=== PATIENT | male | born 1955 | race Asian ===

== ENCOUNTER 2017-03-14 15:57 | Emergency (ER) | payer OTHER ==
[~2017-03-14] VITALS: Ht 175.3 cm; Wt 90.9 kg
[2017-03-14] MEDS ORDERED: ASPI81 PO (16:15)
[2017-03-14] MEDS ORDERED: METF500T4 PO (16:15)
[2017-03-14] MEDS ORDERED: LISI-660 PO (16:15)
[2017-03-14 16:16] LABS: GLUCOSE,POINT OF CARE 444 MG/DL (70-110)
[2017-03-14] MEDS ORDERED: BUPIVACAINE HCL 0.5% 50 ML VIAL SQ ONE (17:15)
[2017-03-14] MEDS ORDERED: POVIDONE-IODINE 10% 15 ML SOLUTION UD ONE (17:31)
[2017-03-14] MEDS ORDERED: SULFAMETHOX/TRIMETH DS 800-160 MG/TABLET PO ONE (17:45)
[2017-03-14] MEDS ORDERED: CefTRIAXone SODIUM 1 GM/VIAL IM ONE (17:45)
[2017-03-14] MEDS ORDERED: LIDOCAINE HCL/PF 1% 2 ML VIAL IM ONE (17:45)
[2017-03-14 17:57] VITALS: BP 139/86
[2017-03-15] MEDS ORDERED: HYDR-309 PO (14:35)
[2017-03-15] MEDS ORDERED: SULF1TAB42 PO (14:35)
== END 2017-03-14 18:01 | disposition home or self-care (01) ==
LOC: EMS 15:58
DX: L02.31 Cutaneous abscess of buttock (principal); E11.9 Type 2 diabetes mellitus without complications; I10 Essential (primary) hypertension; E78.00 Pure hypercholesterolemia, unspecified; Z79.82 Long term (current) use of aspirin
CPT/HCPCS: 10060; 82962; 96372; 99284; J0696; J3490 ×2

== ENCOUNTER 2017-03-15 14:08 | Emergency (ER) | payer OTHER ==
[~2017-03-15] VITALS: Ht 175.3 cm; Wt 89.0 kg
[~2017-03-15 14:08] MED LIST: ASPI81 PO; LISI-660 PO; METF500T4 PO
[2017-03-15] MEDS ORDERED: SULF1TAB42 PO (14:35)
[2017-03-15] MEDS ORDERED: HYDR-309 PO (14:35)
[2017-03-15 14:37] LABS: GLUCOSE,POINT OF CARE > 600 MG/DL (70-110)
[2017-03-15] MEDS ORDERED: SODIUM CHLORIDE 0.9% 1,000 ML IV ONE (15:30)
[2017-03-15] MEDS ORDERED: INSULIN REGULAR, HUMAN 100 UNITS/ML IVP ONE (15:30)
[2017-03-15 16:15] LABS: CALCIUM, TOTAL 8.6 mg/dL (8.8-10.5); CREATININE 1.26 mg/dL (0.60-1.30); POTASSIUM 4.3 mmol/L (3.5-5.1)
[2017-03-15 17:08] VITALS: BP 131/76
[2017-03-15 17:17] LABS: GLUCOSE,POINT OF CARE 165 MG/DL (70-110)
[2017-03-15] MEDS ORDERED: IBUPROFEN 600 MG TABLET PO ONE (17:30)
== END 2017-03-15 17:37 | disposition home or self-care (01) ==
LOC: EMS 14:10
DX: E11.65 Type 2 diabetes mellitus with hyperglycemia (principal); I10 Essential (primary) hypertension; E78.00 Pure hypercholesterolemia, unspecified; Z48.00 Encounter for change or removal of nonsurgical wound dressing; Z88.6 Allergy status to analgesic agent; Z88.8 Allergy status to other drugs, medicaments and biological substances
CPT/HCPCS: 36415; 80048; 82948; 82962; 96361; 96374; 99285; J1815; J7030

== ENCOUNTER 2017-08-21 12:24 | Emergency (ER) | payer OTHER ==
[~2017-08-21] VITALS: Ht 175.3 cm; Wt 90.9 kg
[~2017-08-21 12:24] MED LIST changes: +HYDR-309 PO; +SULF1TAB42 PO
[2017-08-21 12:58] LABS: GLUCOSE COMMENT 2 Doctor Notified; GLUCOSE,POINT OF CARE 570 MG/DL (70-110)
[2017-08-21] MEDS ORDERED: INSULIN REGULAR, HUMAN 100 UNITS/ML IVP ONE ×2 (14:45→15:00)
[2017-08-21] MEDS ORDERED: SODIUM CHLORIDE 0.9% 1,000 ML IV ONE (14:45)
[2017-08-21 14:57] LABS: GLUCOSE,POINT OF CARE 388 MG/DL (70-110)
[2017-08-21] MEDS ORDERED: HYDROCODONE/ACETAMINOPHEN 5-325 MG TABLET PO ONE (15:15)
[2017-08-21] MEDS ORDERED: LIDOCAINE HCL 1%/EPI 1:200,000/PF 10 ML VIAL INJ ONE (15:15)
[2017-08-21] MEDS ORDERED: CEPHALEXIN MONOHYDRATE 500 MG CAPSULE PO ONE (15:15)
[2017-08-21] MEDS ORDERED: SULFAMETHOX/TRIMETH DS 800-160 MG/TABLET PO ONE (15:15)
[2017-08-21 15:37] LABS: GLUCOSE,POINT OF CARE 260 MG/DL (70-110)
[2017-08-21] MEDS ORDERED: LISINOPRIL 10 MG TABLET PO ONE (16:15)
[2017-08-21 17:30] VITALS: BP 156/87
[2017-08-21 18:03] LABS: GLUCOSE,POINT OF CARE 276 MG/DL (70-110)
== END 2017-08-21 18:00 | disposition home or self-care (01) ==
LOC: EMS 12:28
DX: L02.31 Cutaneous abscess of buttock (principal); E11.65 Type 2 diabetes mellitus with hyperglycemia; I10 Essential (primary) hypertension; E78.00 Pure hypercholesterolemia, unspecified
CPT/HCPCS: 10060; 82962; 96361; 96374; 99284; J1815; J3490; J7030

== ENCOUNTER 2017-08-25 11:43 | Emergency (ER) | payer OTHER ==
[~2017-08-25] VITALS: Ht 175.3 cm; Wt 90.9 kg
[~2017-08-25 11:43] MED LIST changes: -HYDR-309 PO; -SULF1TAB42 PO
[2017-08-25 15:07] VITALS: BP 152/82
== END 2017-08-25 15:10 | disposition home or self-care (01) ==
LOC: EMS 11:43
DX: Z48.00 Encounter for change or removal of nonsurgical wound dressing (principal); E11.9 Type 2 diabetes mellitus without complications; E78.00 Pure hypercholesterolemia, unspecified; I10 Essential (primary) hypertension
CPT/HCPCS: 99282

== ENCOUNTER 2017-11-21 14:26 | Emergency (ER) | payer OTHER ==
[~2017-11-21] VITALS: Ht 175.3 cm; Wt 79.5 kg
[2017-11-21 14:43] VITALS: BP 184/100
[2017-11-21 14:53] LABS: GLUCOSE,POINT OF CARE 475 MG/DL (70-110)
== END 2017-11-21 16:00 | disposition left against medical advice (07) ==
LOC: EMS 14:26
DX: M79.603 Pain in arm, unspecified (principal); Z53.21 Procedure and treatment not carried out due to patient leaving prior to being seen by health care provider; Z79.899 Other long term (current) drug therapy
CPT/HCPCS: 82962

== ENCOUNTER 2019-06-28 16:02 | Emergency (ER) | payer OTHER ==
[~2019-06-28] VITALS: Ht 175.3 cm; Wt 81.8 kg
[~2019-06-28 16:02] MED LIST changes: +METF-960 PO; -METF500T4 PO
[2019-06-28 16:06] VITALS: BP_DIAS 52
[2019-06-28] MEDS ORDERED: [UNRECOGNIZED DRUG - REMARK] PO (16:17)
[2019-06-28] MEDS ORDERED: METF-960 PO (16:17)
[2019-06-28] MEDS ORDERED: EMPA10TA PO (16:17)
[2019-06-28] MEDS ORDERED: SITA25 PO (16:17)
[2019-06-28] MEDS ORDERED: GLIP5 PO (16:17)
[2019-06-28] MEDS ORDERED: UNKNOWN HTN MED PO (16:17)
[2019-06-28 16:20] LABS: GLUCOSE,POINT OF CARE 198 MG/DL (70-110)
[2019-06-28 19:10] VITALS: BP_SYST 118
== END 2019-06-28 19:37 | disposition home or self-care (01) ==
LOC: EMS 16:03
DX: Z11.1 Encounter for screening for respiratory tuberculosis (principal); E11.9 Type 2 diabetes mellitus without complications; I10 Essential (primary) hypertension; L40.9 Psoriasis, unspecified; Z79.899 Other long term (current) drug therapy

== ENCOUNTER 2021-10-16 04:47 | Inpatient (IN) | payer MEDICARE, OTHER ==
[~2021-10-16] VITALS: Ht 167.6 cm; Wt 57.6 kg
[~2021-10-16 04:47] MED LIST changes: -ASPI81 PO; +EMPA10TA PO; +GLIP5 PO; -LISI-660 PO; +LISI-892 PO; +METF-1211 PO; -METF-960 PO; +SITA25 PO; +UNKNOWN HTN MED PO; +[UNRECOGNIZED DRUG - REMARK] PO
[2021-10-16] MEDS ORDERED: IPRATROPIUM BROMIDE 0.5 MG/2.5 ML NEB SOLUTION NEB ONE (05:00)
[2021-10-16] MEDS ORDERED: ALBUTEROL SULFATE 2.5 MG/0.5 ML NEB SOLUTION NEB ONE (05:00)
[2021-10-16] MEDS ORDERED: DEXAMETHASONE SOD PHOS 4 MG/ML VIAL IVP ONE (05:00)
[2021-10-16 05:19] LABS: ABG BASE EXCESS -2.3 mmol/L (-2.0-3.0); ABG CARBOXYHEMOGLOBIN 0.8 % (0.0-1.5); ABG METHEMOGLOBIN 0.3 % (0.0-1.5); ABG OXYGEN SATURATION 95.6 % (95.0-98.0); ABG OXYHEMOGLOBIN 94.5 % (94.0-100.0); ABG PCO2 27 mmHg (35-45); ABG PH 7.507 (7.35-7.450); ABG TOTAL HEMOGLOBIN 16.6 G/dL (12.0-18.0); O2 DEVICE,BLOOD GAS NRB (ROOM AIR); PO2, ARTERIAL BG 71.7 mmHg (79.0-87.0); SITE, BLOOD GAS RT BRACHIAL; SOURCE, BLOOD GAS ARTERIAL; TEMPERATURE, FAHRENHEIT, BG 98.6 FAHREN (96.0-98.6)
[2021-10-16] MEDS ORDERED: SODIUM CHLORIDE 0.9% 100 ML ONE (05:57)
[2021-10-16] MEDS ORDERED: IOHEXOL 350 MG/ML 100 ML VIAL ONE (05:57)
[2021-10-16 05:58] LABS: COVID AG,FIA SOURCE NASOPHARYNGEAL
[2021-10-16 06:01] LABS: BASOPHILS % (AUTO) 0.6 % (0.0-2.0); EOSINOPHILS % (AUTO) 0 % (1.0-6.0); HEMATOCRIT 47.4 % (41-53); HEMOGLOBIN 15.8 g/dL (13.5-17.5); LYMPHOCYTES # (AUTO) 0.6 K/uL (1.0-4.8); LYMPHOCYTES % (AUTO) 5.6 % (22.0-44.0); MEAN CORPUSCULAR HEMOGLOBIN 27.7 pg (26.0-34.0); MEAN CORPUSCULAR HGB CONC 33.4 G/dL (31.0-37.0); MEAN CORPUSCULAR VOLUME 83 fL (80-100); MONOCYTES # (AUTO) 0.3 K/uL (0.1-1.0); MONOCYTES % (AUTO) 2.7 % (2.0-9.0); NEUTROPHILS # (AUTO) 9.9 K/uL (1.8-7.7); PLATELET COUNT (AUTO) 172 K/uL (150-450); RED BLOOD CELL COUNT(AUTO) 5.71 MIL/uL (4.50-5.90); RED CELL DISTRIBUTION WIDTH 15.2 % (11.5-14.5)
[2021-10-16 06:17] LABS: NEUTROPHILS % (AUTO) 91.1 % (40.0-70.0)
[2021-10-16 06:24] LABS: ANION GAP 10 mmol/L (8-16); CALCIUM, TOTAL 8.4 mg/dL (8.8-10.5); CARBON DIOXIDE 26 mmol/L (22-29); CHLORIDE 100 mmol/L (98-107); CREATININE 1.27 mg/dL (0.60-1.30); D-DIMER 18.64 mg/L FEU (0.00-0.50); GLOMERULAR FILTR. RATE CALC 57 mL/min (>60); GLUCOSE,RANDOM 244 mg/dL (70-110); POTASSIUM 3.4 mmol/L (3.5-5.1); PROTHROMBIN TIME 11.1 SEC (9.4-11.6); SODIUM SERUM 136 mmol/L (136-145); UREA NITROGEN, BLOOD 17 mg/dL (7-18)
[2021-10-16 06:25] LABS: INFLUENZA TYPE A NEGATIVE FOR TYPE A (NEGATIVE); INFLUENZA TYPE B NEGATIVE FOR TYPE B (NEGATIVE)
[2021-10-16 06:26] LABS: B-TYPE NATRIURETIC PEPTIDE 1500 pg/mL (0-100)
[2021-10-16] MEDS ORDERED: FUROSEMIDE 40 MG/4 ML VIAL IVP ONE (06:30)
[2021-10-16] MEDS ORDERED: HydrALAZINE HCL 20 MG/ML VIAL IVP ONE (06:30)
[2021-10-16 06:42] LABS: ALANINE AMINOTRANSFERASE 17 U/L (12-78); ALBUMIN 2.5 g/dL (3.4-5.0); ALKALINE PHOSPHATASE 69 U/L (46-116); ASPARTATE AMINOTRANSFERASE 34 U/L (15-37); C-REACTIVE PROTEIN QUANT 3.82 mg/dL (0.00-0.30); CREATINE KINASE, TOTAL ONLY 65 U/L (39-308); FERRITIN 637 ng/mL (26-388); PHOSPHORUS 2.8 mg/dL (2.5-4.9)
[2021-10-16 06:54] LABS: LACTIC ACID 2.5 mmol/L (0.4-2.0)
[2021-10-16] MEDS ORDERED: HEPARIN SODIUM 25000 UNITS/D5W 250 ML IV PRN (07:15)
[2021-10-16] MEDS ORDERED: HEPARIN SODIUM,PORCINE 5,000 UNITS/ML VIAL IVP PRN ×3 (07:15→21:15)
[2021-10-16] MEDS ORDERED: HEPARIN SODIUM,PORCINE 5,000 UNITS/ML VIAL IVP ONE ×2 (07:15→21:15)
[2021-10-16] MEDS ORDERED: ACETAMINOPHEN 325 MG TABLET PO PRN ×2 (07:30→10:00)
[2021-10-16] MEDS ORDERED: ONDANSETRON HCL 4 MG/2 ML VIAL IVP PRN ×2 (07:30→10:00)
[2021-10-16 07:55] LABS: INR 1.1 (0.9-1.1); PROTHROMBIN TIME 11.4 SEC (9.4-11.6)
[2021-10-16] MEDS ORDERED: DEXTROSE 50%-WATER 25 GM/50 ML SYRINGE IVP PRN (10:00)
[2021-10-16] MEDS ORDERED: POTASSIUM CHL 10 MEQ/WATER 50 ML IV PRN (10:00)
[2021-10-16] MEDS ORDERED: REMDESIVIR 200 MG in SODIUM CHLORIDE 0.9% 250 ML IV ONE (10:00)
[2021-10-16 10:56] LABS: APPEARANCE,URINE CLEAR (CLEAR); BILIRUBIN,URINE NEGATIVE (NEGATIVE); GLUCOSE, URINE (UA) 100 mg/dL (NEGATIVE); KETONES,URINE NEGATIVE (NEGATIVE); LEUKOCYTE ESTERASE ,URINE NEGATIVE (NEGATIVE); NITRATE,URINE NEGATIVE (NEGATIVE); OCCULT BLOOD,URINE NEGATIVE (NEGATIVE); PH,URINE 5.5 (5.0-8.0); PROTEIN,URINE NEGATIVE (NEGATIVE); UROBILINOGEN,URINE 0.2 mg/dL (<=1.0)
[2021-10-16] MEDS: INSULIN GLARGINE,HUM.REC.ANLOG 100 UNITS/ML SQ SCH (10:56)
[2021-10-16] MEDS: INSULIN LISPRO 100 UNITS/ML SQ PRN ×4 (10:59→16:10)
[2021-10-16 11:00] LABS: AMPHET/METH SCREEN,URINE NEGATIVE (NEGATIVE); BARBITURATE SCREEN, URINE NEGATIVE (NEGATIVE); BENZODIAZEPINES SCREEN,URINE NEGATIVE (NEGATIVE); CANNABINOID SCREEN,URINE NEGATIVE (NEGATIVE); COCAINE SCREEN,URINE NEGATIVE (NEGATIVE); METHADONE SCREEN, URINE NEGATIVE (NEGATIVE); OPIATE SCREEN,URINE POSITIVE (NEGATIVE)
[2021-10-16 11:02] LABS: PHENCYCLIDINE SCREEN,URINE NEGATIVE (NEGATIVE)
[2021-10-16 11:11] LABS: GLUCOMETER DEV NAME(LOC) ERT.5; GLUCOSE,POINT OF CARE 299 MG/DL (70-110)
[2021-10-16 12:02] LABS: BACTERIA,URINE None Seen /HPF (None Seen); RBC,URINE None Seen /HPF (0-2); WBC,URINE None Seen /HPF (0-5)
[2021-10-16 12:36] LABS: GLUCOMETER DEV NAME(LOC) ERT.5; GLUCOSE,POINT OF CARE 286 MG/DL (70-110)
[2021-10-16 14:07] LABS: GLUCOMETER DEV NAME(LOC) ERT.5; GLUCOSE,POINT OF CARE 269 MG/DL (70-110)
[2021-10-16 16:16] LABS: GLUCOMETER DEV NAME(LOC) ERT.5; GLUCOSE,POINT OF CARE 172 MG/DL (70-110)
[2021-10-16 21:47] VITALS: BP 131/75
[2021-10-16 21:57] LABS: INR 1.1 (0.9-1.1); PROTHROMBIN TIME 11.9 SEC (9.4-11.6)
[2021-10-16] MEDS: DOCUSATE SODIUM 100 MG CAPSULE PO SCH (22:03)
[2021-10-16] MEDS: FAMOTIDINE 20 MG TABLET PO SCH (22:03)
[2021-10-16 22:28] LABS: BASOPHILS % (AUTO) 0.2 % (0.0-2.0); EOSINOPHILS % (AUTO) 0 % (1.0-6.0); HEMATOCRIT 51.8 % (41-53); HEMOGLOBIN 17.4 g/dL (13.5-17.5); LYMPHOCYTES # (AUTO) 0.6 K/uL (1.0-4.8); LYMPHOCYTES % (AUTO) 5.1 % (22.0-44.0); MEAN CORPUSCULAR HEMOGLOBIN 27.5 pg (26.0-34.0); MEAN CORPUSCULAR HGB CONC 33.7 G/dL (31.0-37.0); MEAN CORPUSCULAR VOLUME 82 fL (80-100); MONOCYTES # (AUTO) 0.4 K/uL (0.1-1.0); MONOCYTES % (AUTO) 3.2 % (2.0-9.0); NEUTROPHILS # (AUTO) 11.5 K/uL (1.8-7.7); PLATELET COUNT (AUTO) 200 K/uL (150-450); RED BLOOD CELL COUNT(AUTO) 6.34 MIL/uL (4.50-5.90); RED CELL DISTRIBUTION WIDTH 15.3 % (11.5-14.5)
[2021-10-16] MEDS: POTASSIUM CHLORIDE 20 MEQ ER TABLET PO PRN (22:30)
[2021-10-16] MEDS: HEPARIN SODIUM,PORCINE 5,000 UNITS/ML VIAL IVP PRN (22:36)
[2021-10-16 22:41] LABS: NEUTROPHILS % (AUTO) 91.5 % (40.0-70.0)
[2021-10-17 00:01] LABS: GLUCOMETER DEV NAME(LOC) 5N.1C; GLUCOSE,POINT OF CARE 100 MG/DL (70-110)
[2021-10-17] MEDS: HEPARIN SODIUM 25000 UNITS/D5W 250 ML IV PRN (00:46)
[2021-10-17 01:05] VITALS: BP 119/88
[2021-10-17 04:55] LABS: BASOPHILS % (AUTO) 0.2 % (0.0-2.0); EOSINOPHILS % (AUTO) 0 % (1.0-6.0); HEMATOCRIT 51.3 % (41-53); HEMOGLOBIN 17.1 g/dL (13.5-17.5); LYMPHOCYTES # (AUTO) 0.9 K/uL (1.0-4.8); LYMPHOCYTES % (AUTO) 4.9 % (22.0-44.0); MEAN CORPUSCULAR HEMOGLOBIN 27.1 pg (26.0-34.0); MEAN CORPUSCULAR HGB CONC 33.3 G/dL (31.0-37.0); MEAN CORPUSCULAR VOLUME 81 fL (80-100); MONOCYTES # (AUTO) 0.5 K/uL (0.1-1.0); MONOCYTES % (AUTO) 2.7 % (2.0-9.0); PLATELET COUNT (AUTO) 238 K/uL (150-450); RED CELL DISTRIBUTION WIDTH 15.2 % (11.5-14.5)
[2021-10-17 04:56] LABS: NEUTROPHILS % (AUTO) 92.2 % (40.0-70.0)
[2021-10-17 05:05] VITALS: BP 114/85
[2021-10-17 06:41] LABS: GLUCOMETER DEV NAME(LOC) 5S.2B; GLUCOSE,POINT OF CARE 125 MG/DL (70-110)
[2021-10-17 07:26] VITALS: BP 130/80
[2021-10-17] MEDS: DEXAMETHASONE SOD PHOS 4 MG/ML VIAL IVP SCH (09:14)
[2021-10-17] MEDS: INSULIN GLARGINE,HUM.REC.ANLOG 100 UNITS/ML SQ SCH (09:15)
[2021-10-17] MEDS: FUROSEMIDE 40 MG/4 ML VIAL IVP SCH (09:17)
[2021-10-17] MEDS: LISINOPRIL 20 MG TABLET PO SCH (09:18)
[2021-10-17] MEDS: DOCUSATE SODIUM 100 MG CAPSULE PO SCH ×2 (09:18→22:23)
[2021-10-17] MEDS: FAMOTIDINE 20 MG TABLET PO SCH ×2 (09:19→22:23)
[2021-10-17] MEDS ORDERED: SODIUM CHLORIDE 0.9% 500 ML IV ONE (10:04)
[2021-10-17 10:43] VITALS: BP 128/72
[2021-10-17] MEDS: REMDESIVIR 100 MG in SODIUM CHLORIDE 0.9% 250 ML IV SCH (11:36)
[2021-10-17] MEDS: INSULIN LISPRO 100 UNITS/ML SQ PRN ×3 (11:43→22:22)
[2021-10-17 15:28] VITALS: BP 126/68
[2021-10-17 20:16] VITALS: BP 120/68
[2021-10-17 20:31] LABS: GLUCOMETER DEV NAME(LOC) 5S.2B; GLUCOSE,POINT OF CARE 226 MG/DL (70-110)
[2021-10-17 21:21] LABS: GLUCOMETER DEV NAME(LOC) 5N.1C; GLUCOSE,POINT OF CARE 285 MG/DL (70-110)
[2021-10-17 21:21] LABS: GLUCOMETER DEV NAME(LOC) 5N.1C; GLUCOSE,POINT OF CARE 242 MG/DL (70-110)
[2021-10-17] MEDS ORDERED: HEPARIN SODIUM,PORCINE 5,000 UNITS/ML VIAL IVP ONE (22:30)
[2021-10-18 00:27] VITALS: BP 113/71
[2021-10-18] MEDS: HEPARIN SODIUM 25000 UNITS/D5W 250 ML IV PRN (01:40)
[2021-10-18 05:07] VITALS: BP 140/82
[2021-10-18] MEDS: INSULIN LISPRO 100 UNITS/ML SQ PRN ×3 (06:18→17:17)
[2021-10-18 06:26] LABS: GLUCOMETER DEV NAME(LOC) 5S.2B; GLUCOSE,POINT OF CARE 147 MG/DL (70-110)
[2021-10-18] MEDS: LISINOPRIL 20 MG TABLET PO SCH (08:49)
[2021-10-18] MEDS: DEXAMETHASONE SOD PHOS 4 MG/ML VIAL IVP SCH (08:50)
[2021-10-18] MEDS: DOCUSATE SODIUM 100 MG CAPSULE PO SCH ×2 (08:51→21:01)
[2021-10-18] MEDS: FAMOTIDINE 20 MG TABLET PO SCH ×2 (08:51→21:01)
[2021-10-18] MEDS: FUROSEMIDE 40 MG/4 ML VIAL IVP SCH (08:51)
[2021-10-18] MEDS: INSULIN GLARGINE,HUM.REC.ANLOG 100 UNITS/ML SQ SCH (08:55)
[2021-10-18 09:13] VITALS: BP 130/80
[2021-10-18] MEDS: REMDESIVIR 100 MG in SODIUM CHLORIDE 0.9% 250 ML IV SCH (10:14)
[2021-10-18 12:55] VITALS: BP 111/69
[2021-10-18 14:46] VITALS: BP 125/83
[2021-10-18 18:02] LABS: GLUCOMETER DEV NAME(LOC) 5S.2B; GLUCOSE,POINT OF CARE 253 MG/DL (70-110)
[2021-10-18 18:02] LABS: GLUCOMETER DEV NAME(LOC) 5S.2B; GLUCOSE,POINT OF CARE 163 MG/DL (70-110)
[2021-10-18 20:00] VITALS: BP 110/69
[2021-10-19] VITALS: BP 124/86
[2021-10-19] MEDS: HEPARIN SODIUM 25000 UNITS/D5W 250 ML IV PRN ×2 (02:42→22:50)
[2021-10-19 04:20] VITALS: BP 116/74
[2021-10-19 07:10] VITALS: BP 132/66
[2021-10-19 08:11] LABS: GLUCOMETER DEV NAME(LOC) 5N.1C; GLUCOSE,POINT OF CARE 103 MG/DL (70-110)
[2021-10-19] MEDS: DEXAMETHASONE SOD PHOS 4 MG/ML VIAL IVP SCH (08:46)
[2021-10-19] MEDS: FUROSEMIDE 40 MG/4 ML VIAL IVP SCH (08:50)
[2021-10-19] MEDS: DOCUSATE SODIUM 100 MG CAPSULE PO SCH ×2 (08:52→19:42)
[2021-10-19] MEDS: LISINOPRIL 20 MG TABLET PO SCH (08:52)
[2021-10-19] MEDS: FAMOTIDINE 20 MG TABLET PO SCH ×2 (08:52→19:42)
[2021-10-19] MEDS: INSULIN GLARGINE,HUM.REC.ANLOG 100 UNITS/ML SQ SCH (08:55)
[2021-10-19 09:14] LABS: ALANINE AMINOTRANSFERASE 11 U/L (12-78); ALBUMIN 2.1 g/dL (3.4-5.0); ALKALINE PHOSPHATASE 93 U/L (46-116); ANION GAP 9 mmol/L (8-16); ASPARTATE AMINOTRANSFERASE 25 U/L (15-37); BILIRUBIN,TOTAL 0.9 mg/dL (0.1-1.0); CALCIUM, TOTAL 7.9 mg/dL (8.8-10.5); CARBON DIOXIDE 23 mmol/L (22-29); CHLORIDE 102 mmol/L (98-107); CREATININE 0.97 mg/dL (0.60-1.30); GLOMERULAR FILTR. RATE CALC > 60 mL/min (>60); GLUCOSE,RANDOM 94 mg/dL (70-110); POTASSIUM 3.1 mmol/L (3.5-5.1); SODIUM SERUM 134 mmol/L (136-145); TOTAL PROTEIN, SERUM 6.5 g/dL (6.4-8.2); UREA NITROGEN, BLOOD 29 mg/dL (7-18)
[2021-10-19] MEDS ORDERED: POTASSIUM CHL 10 MEQ/WATER 50 ML IV PRN (09:45)
[2021-10-19] MEDS ORDERED: POTASSIUM CHLORIDE 20 MEQ ER TABLET PO PRN (09:45)
[2021-10-19] MEDS: REMDESIVIR 100 MG in SODIUM CHLORIDE 0.9% 250 ML IV SCH (10:37)
[2021-10-19] MEDS: POTASSIUM CHLORIDE 20 MEQ ER TABLET PO PRN (10:38)
[2021-10-19 11:06] VITALS: BP 123/77
[2021-10-19] MEDS: INSULIN LISPRO 100 UNITS/ML SQ PRN ×3 (11:28→21:51)
[2021-10-19 15:24] VITALS: BP 130/77
[2021-10-19] MEDS: HEPARIN SODIUM,PORCINE 5,000 UNITS/ML VIAL IVP PRN (17:43)
[2021-10-19 20:22] VITALS: BP 124/98
[2021-10-19 20:52] LABS: GLUCOMETER DEV NAME(LOC) 5N.3; GLUCOSE,POINT OF CARE 100 MG/DL (70-110)
[2021-10-19 21:10] LABS: GLUCOMETER DEV NAME(LOC) 5S.1; GLUCOSE,POINT OF CARE 218 MG/DL (70-110)
[2021-10-20] VITALS (7 sets, daily range): BP systolic 112–133; BP diastolic 58–91
[2021-10-20 03:41] LABS: GLUCOMETER DEV NAME(LOC) 5S.2B; GLUCOSE,POINT OF CARE 189 MG/DL (70-110)
[2021-10-20 03:41] LABS: GLUCOMETER DEV NAME(LOC) 5S.2B; GLUCOSE,POINT OF CARE 200 MG/DL (70-110)
[2021-10-20 06:07] LABS: GLUCOMETER DEV NAME(LOC) 5N.1C; GLUCOSE,POINT OF CARE 76 MG/DL (70-110)
[2021-10-20 07:31] LABS: BASOPHILS % (AUTO) 0.1 % (0.0-2.0); EOSINOPHILS % (AUTO) 0.1 % (1.0-6.0); HEMATOCRIT 48.9 % (41-53); HEMOGLOBIN 16.4 g/dL (13.5-17.5); LYMPHOCYTES # (AUTO) 0.6 K/uL (1.0-4.8); LYMPHOCYTES % (AUTO) 5.8 % (22.0-44.0); MEAN CORPUSCULAR HEMOGLOBIN 27.2 pg (26.0-34.0); MEAN CORPUSCULAR HGB CONC 33.5 G/dL (31.0-37.0); MEAN CORPUSCULAR VOLUME 81 fL (80-100); MONOCYTES # (AUTO) 0.3 K/uL (0.1-1.0); MONOCYTES % (AUTO) 3.1 % (2.0-9.0); NEUTROPHILS # (AUTO) 8.9 K/uL (1.8-7.7); PLATELET COUNT (AUTO) 325 K/uL (150-450); RED BLOOD CELL COUNT(AUTO) 6.02 MIL/uL (4.50-5.90); RED CELL DISTRIBUTION WIDTH 15.1 % (11.5-14.5)
[2021-10-20 07:35] LABS: ALANINE AMINOTRANSFERASE 13 U/L (12-78); ALBUMIN 2.2 g/dL (3.4-5.0); ALKALINE PHOSPHATASE 59 U/L (46-116); ANION GAP 9 mmol/L (8-16); ASPARTATE AMINOTRANSFERASE 25 U/L (15-37); BILIRUBIN,TOTAL 0.8 mg/dL (0.1-1.0); CARBON DIOXIDE 26 mmol/L (22-29); CHLORIDE 103 mmol/L (98-107); CREATININE 1.05 mg/dL (0.60-1.30); GLOMERULAR FILTR. RATE CALC > 60 mL/min (>60); GLUCOSE,RANDOM 84 mg/dL (70-110); POTASSIUM 3.4 mmol/L (3.5-5.1); SODIUM SERUM 138 mmol/L (136-145); TOTAL PROTEIN, SERUM 6.7 g/dL (6.4-8.2); UREA NITROGEN, BLOOD 30 mg/dL (7-18)
[2021-10-20 07:40] LABS: NEUTROPHILS % (AUTO) 90.9 % (40.0-70.0)
[2021-10-20] MEDS: DEXAMETHASONE SOD PHOS 4 MG/ML VIAL IVP SCH (08:15)
[2021-10-20] MEDS: FUROSEMIDE 40 MG/4 ML VIAL IVP SCH (08:16)
[2021-10-20] MEDS: DOCUSATE SODIUM 100 MG CAPSULE PO SCH ×2 (08:17→20:12)
[2021-10-20] MEDS: LISINOPRIL 20 MG TABLET PO SCH (08:18)
[2021-10-20] MEDS: FAMOTIDINE 20 MG TABLET PO SCH ×2 (08:18→20:12)
[2021-10-20] MEDS: HEPARIN SODIUM,PORCINE 5,000 UNITS/ML VIAL IVP PRN (08:19)
[2021-10-20] MEDS: POTASSIUM CHLORIDE 20 MEQ ER TABLET PO PRN (08:19)
[2021-10-20] MEDS: INSULIN GLARGINE,HUM.REC.ANLOG 100 UNITS/ML SQ SCH (08:36)
[2021-10-20] MEDS: REMDESIVIR 100 MG in SODIUM CHLORIDE 0.9% 250 ML IV SCH (09:48)
[2021-10-20] MEDS: APIXABAN 5 MG TABLET PO SCH ×2 (11:30→20:12)
[2021-10-20] MEDS: INSULIN LISPRO 100 UNITS/ML SQ PRN ×3 (11:35→20:22)
[2021-10-20 20:16] LABS: GLUCOMETER DEV NAME(LOC) 5S.1; GLUCOSE,POINT OF CARE 152 MG/DL (70-110)
[2021-10-20 22:21] LABS: GLUCOMETER DEV NAME(LOC) 5S.2B; GLUCOSE,POINT OF CARE 123 MG/DL (70-110)
[2021-10-20 22:21] LABS: GLUCOMETER DEV NAME(LOC) 5S.2B; GLUCOSE,POINT OF CARE 177 MG/DL (70-110)
[2021-10-21 04:05] VITALS: BP 132/99
[2021-10-21 07:22] VITALS: BP 134/86
[2021-10-21] MEDS: DOCUSATE SODIUM 100 MG CAPSULE PO SCH ×3 (09:00→20:19)
[2021-10-21] MEDS: LISINOPRIL 20 MG TABLET PO SCH (10:01)
[2021-10-21] MEDS: DEXAMETHASONE SOD PHOS 4 MG/ML VIAL IVP SCH (10:01)
[2021-10-21] MEDS: FAMOTIDINE 20 MG TABLET PO SCH ×2 (10:01→20:19)
[2021-10-21] MEDS: APIXABAN 5 MG TABLET PO SCH ×2 (10:02→20:19)
[2021-10-21] MEDS: FUROSEMIDE 40 MG/4 ML VIAL IVP SCH (10:02)
[2021-10-21] MEDS: INSULIN GLARGINE,HUM.REC.ANLOG 100 UNITS/ML SQ SCH (12:12)
[2021-10-21] MEDS: INSULIN LISPRO 100 UNITS/ML SQ PRN ×2 (12:13→20:21)
[2021-10-21 12:36] VITALS: BP 120/81
[2021-10-21 16:30] VITALS: BP 110/81
[2021-10-21 18:12] LABS: GLUCOMETER DEV NAME(LOC) 5S.1; GLUCOSE,POINT OF CARE 186 MG/DL (70-110)
[2021-10-21 18:12] LABS: GLUCOMETER DEV NAME(LOC) 5S.1; GLUCOSE,POINT OF CARE 292 MG/DL (70-110)
[2021-10-21 19:56] LABS: GLUCOMETER DEV NAME(LOC) 5S.2B; GLUCOSE,POINT OF CARE 98 MG/DL (70-110)
[2021-10-21 20:36] VITALS: BP 112/74
[2021-10-22 00:06] VITALS: BP 118/77
[2021-10-22 00:17] LABS: GLUCOMETER DEV NAME(LOC) 5S.1; GLUCOSE,POINT OF CARE 287 MG/DL (70-110)
[2021-10-22 05:36] VITALS: BP 130/84
[2021-10-22] MEDS: INSULIN LISPRO 100 UNITS/ML SQ PRN (06:07)
[2021-10-22 10:16] LABS: GLUCOMETER DEV NAME(LOC) 5S.1; GLUCOSE,POINT OF CARE 181 MG/DL (70-110)
== END 2021-10-22 06:45 | disposition left against medical advice (07) | DRG 177 ==
LOC: EMS 04:47 → 5N 20:51
PROVIDERS: ADMIT Internal Medicine; ATTEND Internal Medicine
PROC: XW033E5 Introduction of Remdesivir Anti-infective into Peripheral Vein, Percutaneous Approach, New Technology Group 5 (ICD-10-PCS; principal; 2021-10-16)
PROC: 5A0935A Assistance with Respiratory Ventilation, Less than 24 Consecutive Hours, High Flow/Velocity Cannula (ICD-10-PCS; 2021-10-16)
PROC: 5A0935A Assistance with Respiratory Ventilation, Less than 24 Consecutive Hours, High Flow/Velocity Cannula (ICD-10-PCS; 2021-10-17)
PROC: 5A0935A Assistance with Respiratory Ventilation, Less than 24 Consecutive Hours, High Flow/Velocity Cannula (ICD-10-PCS; 2021-10-18)
PROC: 5A0935A Assistance with Respiratory Ventilation, Less than 24 Consecutive Hours, High Flow/Velocity Cannula (ICD-10-PCS; 2021-10-19)
PROC: 5A0935A Assistance with Respiratory Ventilation, Less than 24 Consecutive Hours, High Flow/Velocity Cannula (ICD-10-PCS; 2021-10-20)
PROC: 5A0935A Assistance with Respiratory Ventilation, Less than 24 Consecutive Hours, High Flow/Velocity Cannula (ICD-10-PCS; 2021-10-21)
DX: U07.1 COVID-19 (principal); I26.99 Other pulmonary embolism without acute cor pulmonale; J96.01 Acute respiratory failure with hypoxia; J12.82 Pneumonia due to coronavirus disease 2019; I50.23 Acute on chronic systolic (congestive) heart failure; I82.432 Acute embolism and thrombosis of left popliteal vein; I42.9 Cardiomyopathy, unspecified; D68.59 Other primary thrombophilia; I11.0 Hypertensive heart disease with heart failure; Z20.822 Contact with and (suspected) exposure to COVID-19; F15.90 Other stimulant use, unspecified, uncomplicated; E78.5 Hyperlipidemia, unspecified; F11.10 Opioid abuse, uncomplicated; E78.00 Pure hypercholesterolemia, unspecified; Z53.29 Procedure and treatment not carried out because of patient's decision for other reasons; E11.65 Type 2 diabetes mellitus with hyperglycemia; Z90.49 Acquired absence of other specified parts of digestive tract; Z87.891 Personal history of nicotine dependence
CPT/HCPCS: 36600; 71045; 71275; 80053; 81001; 82550; 82728; 82805; 82962; 83605; 83735; 83880; 84100; 84132; 84145; 84484; 85025; 85379; 85610; 85730; 86140; 87040; 87804; 93005; 93306; 93970; 99291; J0360; J1100; J1644; J1815; J1940; J2405; J7040; J7050; Q9967; 36415-L1; 36415-TC; J7613; U0003

== ENCOUNTER 2021-11-19 19:06 | Emergency (ER) | payer MEDICARE, MEDICAID ==
[~2021-11-19] VITALS: Ht 175.3 cm; Wt 68.2 kg
[2021-11-19 19:34] LABS: COVID AG,FIA SOURCE NASAL SWAB
[2021-11-19 19:44] LABS: BASOPHILS % (AUTO) 0.9 % (0.0-2.0); EOSINOPHILS % (AUTO) 1.6 % (1.0-6.0); HEMATOCRIT 37.9 % (41-53); HEMOGLOBIN 12.5 g/dL (13.5-17.5); LYMPHOCYTES # (AUTO) 1.2 K/uL (1.0-4.8); LYMPHOCYTES % (AUTO) 9.7 % (22.0-44.0); MEAN CORPUSCULAR HEMOGLOBIN 27.8 pg (26.0-34.0); MEAN CORPUSCULAR HGB CONC 33.1 G/dL (31.0-37.0); MEAN CORPUSCULAR VOLUME 84 fL (80-100); MONOCYTES # (AUTO) 1.1 K/uL (0.1-1.0); MONOCYTES % (AUTO) 8.5 % (2.0-9.0); NEUTROPHILS # (AUTO) 9.9 K/uL (1.8-7.7); NEUTROPHILS % (AUTO) 79.3 % (40.0-70.0); PLATELET COUNT (AUTO) 405 K/uL (150-450); RED BLOOD CELL COUNT(AUTO) 4.51 MIL/uL (4.50-5.90); RED CELL DISTRIBUTION WIDTH 17.2 % (11.5-14.5)
[2021-11-19 19:55] LABS: CALCIUM, TOTAL 8.7 mg/dL (8.8-10.5); CREATININE 1.24 mg/dL (0.60-1.30); POTASSIUM 4.6 mmol/L (3.5-5.1)
[2021-11-19 20:02] LABS: BILIRUBIN,TOTAL 0.3 mg/dL (0.1-1.0); TOTAL PROTEIN, SERUM 8.1 g/dL (6.4-8.2)
[2021-11-19] MEDS ORDERED: ACETAMINOPHEN 325 MG TABLET PO ONE (20:30)
[2021-11-19] MEDS ORDERED: AZITHROMYCIN 500 MG TABLET PO ONE (21:30)
[2021-11-19] MEDS ORDERED: AZIT-84 PO (23:09)
[2021-11-19 23:15] VITALS: BP 110/79
== END 2021-11-19 23:38 | disposition home or self-care (01) ==
LOC: EMS 19:17
DX: J18.9 Pneumonia, unspecified organism (principal); I10 Essential (primary) hypertension; E11.9 Type 2 diabetes mellitus without complications; E78.00 Pure hypercholesterolemia, unspecified; F15.90 Other stimulant use, unspecified, uncomplicated; Z79.84 Long term (current) use of oral hypoglycemic drugs; Z79.899 Other long term (current) drug therapy; Z20.822 Contact with and (suspected) exposure to COVID-19
CPT/HCPCS: 36415; 71045; 80053; 83605; 83880; 84484; 85025; 87040; 87426; 93005; 99285; C9803; Q9967; U0003